=== PATIENT | male | born 1970 | race Caucasian/White ===

== ENCOUNTER → 2023-08-31 09:32 | Outpatient (REF) | payer OTHER, SELFPAY | LOC: RAD 09:32 | PROVIDERS: ATTENDING PHYSICIAN Physician Assistant; FAMILY PHYSICIAN Physician Assistant Medical | DX: M10.9 Gout, unspecified (principal); M79.641 Pain in right hand; M79.671 Pain in right foot | CPT/HCPCS: 73130; 73630 ==

== ENCOUNTER → 2023-09-20 08:02 | Outpatient (REF) | payer OTHER, SELFPAY | LOC: MRI 3T 08:02 | PROVIDERS: ATTENDING PHYSICIAN Ophthalmology; FAMILY PHYSICIAN Physician Assistant Medical | DX: H47.012 Ischemic optic neuropathy, left eye (principal); H55.09 Other forms of nystagmus | CPT/HCPCS: 70553; A9575 ==